=== PATIENT | female | born 1955 | race Caucasian/White ===

== ENCOUNTER 2018-09-14 11:48 | Emergency (ER) | payer SELFPAY ==
--- NOTE | 2018-09-14 12:23 | PDOC ---
Rapid Medical Evaluation Chief Complaint: Cold Symptoms Time Seen by Provider: 09/14/18 12:20 Medical Evaluation: Allergies Allergy/AdvReac Type Severity Reaction Status Date / Time No Known Allergies Allergy Verified 09/14/18 12:19 09/14/18 12:21 I performed a brief in-person evaluation of this patient. Chief complaint is: Cough, chest pain. Pertinent physical exam findings include: Clear lungs, RRR, S1/S2. I have ordered the following: EKG, CXR. Patient will proceed to the ED for further evaluation. Discharge Disposition - Diagnosis Cough Chest pain Qualifiers: Chest pain type: pleurodynia Qualified Code(s): R07.81 - Pleurodynia - Discharge Dispostion Condition at time of disposition: Stable - Referrals - Patient Instructions - Post Discharge Activity
[2018-09-14 12:24] VITALS: BP 142/80; PULSE 84; TEMP 97.9; BMI 27.4
--- NOTE | 2018-09-14 13:25 | PDOC ---
History of Present Illness - General Chief Complaint: Cold Symptoms Stated Complaint: CHEST PAIN Time Seen by Provider: 09/14/18 12:20 History Source: Patient Exam Limitations: Language Barrier Past History - Past Medical History Allergies/Adverse Reactions: Allergies Allergy/AdvReac Type Severity Reaction Status Date / Time No Known Allergies Allergy Verified 09/14/18 12:19 Home Medications: Ambulatory Orders Losartan/Hydrochlorothiazide [Losartan-Hctz 100-25 mg Tab] 1 each PO DAILY 09/14 COPD: No HTN: Yes - Immunization History Immunization Up to Date: No - Suicide/Smoking/Psychosocial Hx Smoking History: Never smoked Have you smoked in the past 12 months: No Information on smoking cessation initiated: No Hx Alcohol Use: No Drug/Substance Use Hx: No *Physical Exam - Vital Signs Last Vital Signs Temp Pulse Resp BP Pulse Ox 97.9 F 84 16 142/80 97 09/14/18 12:20 09/14/18 12:20 09/14/18 12:20 09/14/18 12:20 09/14/18 12:20 - Physical Exam General Appearance: No: Apparent Distress HEENT: positive: Pharynx Normal Respiratory/Chest: positive: Lungs Clear, Normal Breath Sounds. negative: Chest Tender, Respiratory Distress Cardiovascular: positive: Regular Rhythm, Regular Rate, S1, S2. negative: Murmur Gastrointestinal/Abdominal: positive: Normal Bowel Sounds, Soft. negative: Tender, Distended, Guarding, Rebound Integumentary: positive: Normal Color Neurologic: positive: Fully Oriented, Alert, Normal Mood/Affect Moderate Sedation - Procedure Monitoring Vital Signs: Procedure Monitoring Vital Signs Temperature 97.9 F 09/14/18 12:20 Pulse Rate 84 09/14/18 12:20 Respiratory Rate 16 09/14/18 12:20 Blood Pressure 142/80 09/14/18 12:20 O2 Sat by Pulse Oximetry (%) 97 09/14/18 12:20 Heart Score/ECG Review - History History: Slightly suspicious - Electrocardiogram EKG: Normal - Age Age: 45-65 - Risk Factors Risk Factors Heart Score: Yes Hx Hypertension Based on the list above the patient has:: 1-2 risk factors Medical Decision Making - Medical Decision Making 63 y/o F hx of HTN presents with productive cough with white phlegm from last night along with mild sore throat and some L sided CP with coughing and turning of body. Denies fever, chills, bodyaches, sob, abd pain, n/v/d. Denies smoking or drug use. Denies FH of CAD or AK. EKG shows NSR at 84 bpm, with few PVCs , no ST-T elevation or depression [no prior to compare to] CXR negative Unlikely ACS; patient would have heart score of 2 Stable for d/c 09/14/18 13:18 *DC/Admit/Observation/Transfer Diagnosis at time of Disposition: Viral syndrome - Discharge Dispostion Disposition: HOME Condition at time of disposition: Stable Decision to Admit order: No - Referrals - Patient Instructions Printed Discharge Instructions: DI for Viral Upper Respiratory Infection -- Adult Additional Instructions: Thank you for choosing [facility]. It was a pleasure taking care of you. Your chest xray was negative for pneumonia Likely you have viral syndrome You may take Robitussin or Mucinex as needed for cough Return to the Emergency Department if your symptoms worsen or persist, you have fever, shortness of breath, chest pain, severe abdominal pain, vomiting or other concerning symptoms. - Post Discharge Activity
--- NOTE | 2018-09-14 15:19 | EKG ---
Test Reason : Blood Pressure : / mmHG Vent. Rate : 084 BPM Atrial Rate : 084 BPM P-R Int : 138 ms QRS Dur : 084 ms QT Int : 526 ms P-R-T Axes : 052 023 007 degrees QTc Int : 621 ms POOR DATA QUALITY, INTERPRETATION MAY BE ADVERSELY AFFECTED SINUS RHYTHM WITH OCCASIONAL PREMATURE VENTRICULAR COMPLEXES NONSPECIFIC ST AND T WAVE ABNORMALITY ABNORMAL ECG NO PREVIOUS ECGS AVAILABLE Confirmed by ABRAHAM FULLER, EFREM ([id number] on 09/14/2018 3:18:55 PM Referred By: Confirmed By:EFREM ROSARIO MD
== END 2018-09-14 13:33 | disposition home or self-care (01) ==
LOC: JERFT 11:48
DX: I10 Essential (primary) hypertension (principal)
CPT/HCPCS: 71046-TC-FY; 93005; 93010; 99281-25